=== PATIENT | male | born 1965 | race Two or more races ===

== ENCOUNTER → 2024-06-23 | Outpatient (CLI) | payer SELFPAY | END | disposition home or self-care (01) | DX: J02.9 Acute pharyngitis, unspecified (principal) | CPT/HCPCS: 87070; 87077 ==

== ENCOUNTER → 2024-09-16 | Outpatient (CLI) | payer SELFPAY, OTHER ==
--- NOTE | 2024-09-16 14:21 | MRI_ITS ---
PROCEDURE: SPINE LUMBAR (ROUTINE) 09/16/2024 REASON FOR EXAM: INCREASING PAIN WITH WALKING, STENOSIS, LEFT SIDE TECHNIQUE: SPINE LUMBAR (ROUTINE) COMPARISON: None. FINDINGS: Vertebrae: Preserved in height and signal. Alignment: Normal. Conus Medullaris: Unremarkable. L1-2: Unremarkable. L2-3: Disc bulge. A superimposed disc protrusion measures 2 mm. Mild inferior bilateral foramina stenosis. Moderate canal stenosis. L3-4: Disc bulge asymmetric to the left. Facet joint arthropathy. Ligamentum flavum hypertrophy. Narrowing of the left subarticular space. Moderate bilateral foramina stenosis. Abutment upon the exiting nerves. Moderate canal stenosis. L4-5: Right-sided spondylolysis. Disc bulge asymmetric to the right. Facet joint arthropathy. Moderate bilateral foramina stenosis. Mild canal stenosis. L5-S1: Disc bulge. Facet joint arthropathy. Facet joint arthropathy. No significant foraminal or canal stenosis. Sacrum: Unremarkable. MRI/Spine Lumbar (Routine) IMPRESSION: Degenerate changes predominantly for moderate canal stenosis at L2-L3 and L3-L4 . Moderate bilateral foramina stenosis at L3-L4 and L4-L5. Reading Location: [id number]
== END | disposition home or self-care (01) ==
LOC: MRI 14:15
PROVIDERS: PCP Student in an Organized Health Care Education/Training Program; Referring Provider Student in an Organized Health Care Education/Training Program; Visit Provider Student in an Organized Health Care Education/Training Program
DX: M48.062 Spinal stenosis, lumbar region with neurogenic claudication (principal)
CPT/HCPCS: 72148